=== PATIENT | male | born 1985 | race Caucasian/White ===

== ENCOUNTER 2017-12-11 18:59 | Emergency (ER) | payer MEDICAID, SELFPAY ==
[2017-12-11 18:59] VITALS: BP 121/81; PULSE 86; RESP 16; TEMP 37.6; O2SAT 98; BMI 21.7
--- NOTE | 2017-12-11 19:18 | ED.VISSUMM ---
- ER Visit Summary Date of Service: 12/11/17 Chief Complaint: Dysuria, penile discharge and bilateral testicular pain History of Present Illness: The patient is a 32 M who presents with dysuria, penile discharge and bilateral testicular pain that started 4-5 days ago. He states he does have history of STD. He denies fever chills. Denies myalgias arthralgias. Denies swelling of his joints. Denies headache. Denies photophobia. Denies sore throat. Denies any skin lesions or rash. Physical Examination: Vital signs are within normal limits. Temperature is slightly elevated 99.6. Head is atraumatic normocephalic. Pupils are equal round reactive. Extraocular muscles are intact. TMs are pearly white with landmarks noted. Nares patent with no drainage. Posterior pharynx without erythema or exudate. Uvula is midline. There is no dysphonia or dysphasia. Trachea is midline. There is no stridor with auscultation of the neck. Heart is regular without murmur, gallop or rub. S1 and S2 are normal. Lungs are clear to auscultation with good movement of air bilaterally. Patient is circumcised. There is no penile lesions noted. There is a thin whitish discharge which is minimal. He has bilateral testicular/epididymal pain. There is no evidence of inguinal lymphadenopathy or hernia. There is no swelling of the scrotum or testes. Test Results: Urine test for GC and Chlamydia were ordered. Emergency Department Course and Treatment: Will treat with Rocephin and doxycycline. Treatment Plan: Antibiotics for 10 days and follow-up with primary care physician Disposition: Discharged home with appropriate home-going instructions Impression: 1. Urethral discharge with bilateral testicular pain (epididymitis) This note was generated with [employer] dictation software. It may contain incorrect words, spelling, and punctuation that were not noted in review of the chart prior to signing ED Disposition - Plan for ED Patient: Disposition: Home or Assisted Living Chief Complaint: Male Pain/Injury Instructions: ED Epididymitis Prescriptions: Doxycycline Monohydrate 100 mg PO BID #20 cap Referrals: Ace Contreras MD [Primary Care Provider] - 1 Week if not improving (.)
[2017-12-11] MEDS: Ceftriaxone 500 MG Vial 250 MG IM (19:40)
[2017-12-11] MEDS: Doxycycline 100 MG CAPSULE PO (19:40)
[2017-12-11] MEDS: Phenazopyridine 95 MG Tablet 190 MG PO (19:41)
[2017-12-11 22:37] LABS: Chlamydia Trachomatis by PCR Negative (Negative); Neisserai gonorrhoeae by PCR Positive (Negative); Probe Check PASS
--- NOTE | 2017-12-11 22:40 | ED.RN ---
LAB CALLS WITH CULTURE RESULT, PT POSITIVE FOR GONORRHEA, DR. JAIME MADE AWARE. PT WAS COVERED WITH ANTIBIOTICS WHILE IN THE ED. PATIENT CALLED TO MAKE AWARE AND NO ANSWER. MESSAGE WAS LEFT FOR PATIENT TO CALL EMERGENCY DEPARTMENT WHEN HE RECEIVED THE MESSAGE.
--- NOTE | 2017-12-11 23:14 | ED.RN ---
PATIENT CALLS BACK, MADE AWARE THAT HE WAS POSITIVE FOR GC.
== END 2017-12-11 19:49 | disposition home or self-care (01) ==
PROVIDERS: Emergency Provider Emergency Medicine; Family Provider Family Medicine; PCP Family Medicine
DX: N45.1 Epididymitis (principal); Z72.0 Tobacco use
CPT/HCPCS: 87491; 87591; 96372; 99283

== ENCOUNTER 2018-10-27 21:43 | Emergency (ER) | payer MEDICAID, SELFPAY ==
[2018-10-27 21:44] VITALS: BP 130/74; PULSE 82; RESP 16; TEMP 36.8; O2SAT 99; BMI 22.8
--- NOTE | 2018-10-27 21:59 | ED.DCSUM_ITS ---
- ER Visit Summary Date of Service: 10/27/18 Chief Complaint: [Dental pain.] History of Present Illness: The patient is a 33 M [presents with dental pain for 1 to 2 weeks. Patient has a broken lower right molar. Patient made an appointment with a dentist but cannot be seen until December 26. He denies any fe vers. Denies any trauma.] Physical Examination: HEENT-PERRLA, EOMI. Cranial nerves II through XII grossly intact. TMs clear. Mucous membranes moist. No adenopathy. Dentition-patient has a broken and carried right lower first molar tooth #30. No gingival erythema or abscess formation. Cardiovascular-regular rate and rhythm without murmur or ectopy Lungs-clear to auscultation, chest wall stable without crepitus or subcu emphysema Abdomen-normoactive bowel sounds, soft, nontender, no rebound or rigidity, no peritoneal signs. Extremities-intact ?4, normal range of motion, normal pulses, atraumatic] Test Results: [None indicated] Emergency Department Course and Treatment: [Patient was given amoxicillin] Treatment Plan: [Patient advised use ibuprofen for discomfort and will dispense for [place] for pain. Patient given a prescription for amoxicillin.] Disposition: [Discharged home stable condition] Impression: [Dental pain secondary dental katiuska ] This note was generated with [employer] dictation software. It may contain incorrect words, spelling, and punctuation that were not noted in review of the chart prior to signing ED Disposition - Plan for ED Patient: Referrals: Ace Contreras MD [Primary Care Provider] -
--- NOTE | 2018-10-27 21:59 | ED.DEP ---
ED Disposition - Plan for ED Patient: Instructions: ED Tooth Pain Referrals: Ace Contreras MD [Primary Care Provider] - Additional Instructions: see a dentist
--- NOTE | 2018-10-27 21:59 | ED.DEP ---
ED Disposition - Plan for ED Patient: Instructions: ED Tooth Pain Prescriptions: Amoxicillin 500 mg PO TID #30 tab Referrals: Ace Contreras MD [Primary Care Provider] - Additional Instructions: see a dentist
[2018-10-27] MEDS: AMOXICILLIN 500 MG CAPSULE PO (22:06)
[2018-10-27] MEDS: HYDROcodone Bitartrate/Apap 5/325 Tablet PO (22:06)
== END 2018-10-27 22:13 | disposition home or self-care (01) ==
PROVIDERS: Emergency Provider Emergency Medicine; Family Provider Family Medicine; PCP Family Medicine
DX: K02.9 Dental caries, unspecified (principal); Z72.0 Tobacco use
CPT/HCPCS: 99283

== ENCOUNTER 2020-02-26 16:39 | Emergency (ER) | payer MEDICAID, SELFPAY ==
[2020-02-26 16:41] VITALS: BP 135/80; PULSE 70; RESP 16; TEMP 36.1; O2SAT 99; BMI 23.6
--- NOTE | 2020-02-26 17:03 | ED.DCSUM_ITS ---
- ER Visit Summary Date of Service: 02/26/20 Chief Complaint: Dental pain History of Present Illness: The patient is a 34 M who goes to [facility] and [place]. His primary care physician is Dr. Mcdonnell. He reports he has pain in his right mandibular first and second molars that began 3 days ago. Is a sharp pain is 1010 at worst and a 10 currently. Is worsened by eating. Was transient relieved by Orajel. Physical Examination: Vitals: Stable. Afebrile. Mouth: No trismus. No edema of the floor of the mouth. Pain with percussion of right mandibular first and second molars. No focal abscess. General: A&O x 3. NAD. Cardiovascular exam: Regular rate and rhythm, no murmur, rub or gallop. Respiratory exam: Clear to auscultation bilaterally. No wheezes or stridor. Abdominal exam: Soft, nontender, nondistended, normal bowel sounds. No peritoneal signs. Extremity: No clubbing, cyanosis, or edema. Emergency Department Course and Treatment: An [facility] report was obtained which was negative. Patient was treated with penicillin. He taken naproxen prior to arrival. Treatment Plan: Patient be discharged with penicillin and a prescription for 10 [place]. Instructed to follow-up with his dentist as soon as possible. Return to the emergency department for any worsening symptoms. Disposition: To home in improved and stable condition. Impression: 1. Dental pain. This note was generated with [employer] dictation software. It may contain incorrect words, spelling, and punctuation that were not noted in review of the chart prior to signing ED Disposition - Plan for ED Patient: Disposition: Home or Assisted Living Instructions: ED Tooth Pain Prescriptions: Hydrocodone Bitart/Apap 5-325 [[place] 5MG-325MG] 1 tab PO Q4H PRN PRN 2 Days #10 tab PRN Reason: Pain Prescription Printed Penicillin V Potassium 500 mg PO 4X/DAY #40 tab Prescription Printed Referrals: Dentist,Your [STAFF PHYSICIAN] - As soon as possible
[2020-02-26] MEDS: Penicillin Vk 250 MG Tablet 500 MG PO (17:09)
== END 2020-02-26 17:50 | disposition home or self-care (01) ==
PROVIDERS: Emergency Provider Emergency Medicine; PCP Family Medicine
DX: K08.89 Other specified disorders of teeth and supporting structures (principal); F17.200 Nicotine dependence, unspecified, uncomplicated
CPT/HCPCS: 99283